=== PATIENT | male | born 1935 | race Caucasian/White ===

== ENCOUNTER → 2017-11-17 | Outpatient (CLI) | payer MEDICARE, BC ==
[~2017-11-17] MED LIST: ADULT LOW DOSE81 MG PO; AMLODIPINE BESYL5 MG PO; B-100 COMPLEX1 EAC1 PO; CALCIUM PO; LISINOPRIL10 MG PO; NEURONTIN 300300 M1 PO; RESTORIL30 MG PO
--- NOTE | 2017-11-17 15:22 | 2DMMODE ---
[place] [address] 2 D/M-MODE ECHOCARDIOGRAM Name: GENET MAGUIRE Room: [facility]#: [id number] Admission: 11/17/17 Attend Phys: Nino Velarde MD Discharge: Date of : 39 Date of Service: 11/17/17 1522 Report #: [id number] THIS REPORT FOR: //name// APPROVED REPORT Study performed: 11/17/2017 09:11:34 EXAM: Comprehensive 2D, Doppler, and color-flow Echocardiogram Patient Location: Out-Patient Status: routine BSA: 2.24 HR: 87 bpm BP: 116/78 mmHg Other Information Study Quality: Good Indications Hx. Mitral Valve repair 2D Dimensions LVEF(%): 62.23 (>50%) IVSd: 14.07 (7-11mm) LVOT Diam: 20.39 (18-24mm) LVDd: 41.99 mm PWd: 13.83 (7-11mm) Ascending Ao: 38.94 (22-36mm) LVDs: 28.04 (25-40mm) Aortic Root: 42.98 mm Wallace's LVEF: 62.23 % Volumes Left Atrial Volume (Systole) LA ESV Index: 25.60 mL/m2 Aortic Valve AoV Peak Will.: 1.21 m/s AO Peak Gr.: 5.89 mmHg LVOT Max P.27 mmHg AO Mean Gr.: 3.83 mmHg LVOT Mean P.29 mmHg LVOT Max V: 1.03 m/s AO V2 VTI: 25.96 cm LVOT Mean V: 0.70 m/s ROBERTO (VTI): 2.90 cm2 LVOT V1 VTI: 23.06 cm Mitral Valve E/A Ratio: 6.63 MV Decel. Time: 356.37 [place] [address] 2 D/M-MODE ECHOCARDIOGRAM Name: GENET MAGUIRE Room: [facility]#: [id number] Admission: 11/17/17 Attend Phys: Nino Velarde MD Discharge: Date of : 39 Date of Service: 11/17/17 1522 Report #: [id number] MV E Max Will.: 1.62 m/s MV PHT: 103.35 ms MVA (PHT): 2.13 cm2 TDI E/Lateral E': 16.20 E/Medial E': 14.73 Medial E' Will.: 0.11 m/s Lateral E' Will.: 0.10 m/s Pulmonary Valve PV Peak Will.: 1.02 m/s PV Peak Gr.: 4.15 mmHg Tricuspid Valve TR Peak Gr.: 24.38 mmHg RVSP: 29.38 mmHg Left Ventricle The left ventricle is normal size. There is normal LV segmental wall motion. Mild concentric left ventricular hypertrophy. Left ventricular systolic function is normal. LVEF is 55-60%. This study is not technically sufficient to allow evaluation of the LV diastolic function due to atrial fibrillation. Right Ventricle The right ventricle is normal size. The right ventricular systolic function is normal. Pacemaker lead is present in the right ventricle. Atria Left atrium is mildly dilated. Right atrium is mildly dilated. Aortic Valve The Aortic valve is sclerotic. No aortic regurgitation is present. There is no aortic valvular stenosis. Mitral Valve Hx. of Mitral Valve repair. There is no mitral valve regurgitation noted. No evidence of mitral valve stenosis. Tricuspid Valve The tricuspid valve is normal in structure. Mild tricuspid regurgitation. The RVSP is __29 mmHg. Pulmonic Valve The pulmonary valve is normal in structure. Moderate [place] [address] 2 D/M-MODE ECHOCARDIOGRAM Name: GENET MAGUIRE Room: [facility]#: [id number] Admission: 11/17/17 Attend Phys: Nino Velarde MD Discharge: Date of : 39 Date of Service: 11/17/17 1522 Report #: [id number] Great Vessels The aortic root is normal in size. IVC is normal in size and collapses with >50% inspiration Pericardium There is no pericardial effusion. <Conclusion> The left ventricle is normal size. Mild concentric left ventricular hypertrophy. Left ventricular systolic function is normal. LVEF is 55-60%. This study is not technically sufficient to allow evaluation of the LV diastolic function due to atrial fibrillation. Left atrium is mildly dilated. Right atrium is mildly dilated. The Aortic valve is sclerotic. There is no aortic valvular stenosis. Mild tricuspid regurgitation. The RVSP is __29 mmHg. Pacemaker lead is present in the right ventricle. <ELECTRONICALLY SIGNED> By: Soto Garvey MD, FACC 11/17/17 1522 1522 [id number] Soto Garvey MD, FACC /INF
== END ==
LOC: M.CRD 08:50
DX: I07.1 Rheumatic tricuspid insufficiency (principal); I48.91 Unspecified atrial fibrillation; I10 Essential (primary) hypertension; E78.00 Pure hypercholesterolemia, unspecified; Z98.890 Other specified postprocedural states